=== PATIENT | male | born 1970 | race Caucasian/White ===

== ENCOUNTER 2016-04-06 01:45 | Emergency (ER) | payer OTHER ==
[~2016-04-06] VITALS: Ht 177.8 cm; Wt 81.8 kg
[2016-04-06 01:52] VITALS: Ht 177.8 cm; Wt 81.8 kg
[2016-04-06] MEDS ORDERED: ALBUTEROL 0.5% (NEB) 2.5 MG/0.5 ML AMP HHN STA (02:00)
[2016-04-06] MEDS ORDERED: IPRATROPIUM (NEB) 0.5 MG/2.5 ML AMP HHN ONE (02:00)
[2016-04-06] MEDS ORDERED: predniSONE 20 MG TAB PO ONE (02:30)
[2016-04-06] MEDS ORDERED: ALBU18HF INHALATION (03:46)
[2016-04-06] MEDS ORDERED: PRED20TA PO (03:46)
--- NOTE | 2016-04-06 03:51 | ERD ---
ER Documentation Chief Complaint Date/Time DATE: 04/06/16 TIME: 03:48 Chief Complaint BIBA DUE TO ASTHMA ATTACK HPI This 46 year male presents emergency room with shortness of breath is been increasing for the last 2 days. States he has a history of asthma and his last asthma exacerbation was less than a year ago. He does not have frequent asthma. Does not currently have asthma medication at home. Denies fever and chills. He does not think that he has any infection. Was given 5 mg albuterol treatment in the ambulance. ROS All systems reviewed and are negative except as per history of present illness. Medications Home Meds Active Scripts Prednisone* (Prednisone*) 20 Mg Tab, 40 MG PO DAILY, #4 TAB Prov:AARON WILEYSHUA 04/06/16 Albuterol Sulfate* (Ventolin HFA*) 18 Gm Hfa.aer.ad, 2 PUFF INHALATION Q4H, #1 INHALER Prov:INEZAARONNANCY 04/06/16 PMhx/Soc History of Surgery: Yes (INGUINAL HERNIA REPAIR) Anesthesia Reaction: No Hx Neurological Disorder: No Hx Respiratory Disorders: Yes (ASTHMA) Hx Cardiac Disorders: No Hx Psychiatric Problems: No Hx Miscellaneous Medical Probl: No Hx Alcohol Use: Yes Hx Substance Use: No Hx Tobacco Use: Yes Smoking Status: Former smoker Physical Exam Vitals Vital Signs Date Time Temp Pulse Resp B/P Pulse Ox O2 Delivery O2 Flow Rate FiO2 04/06/16 02:08 108 24 94 Nasal Cannula 2.0 04/06/16 01:52 98.2 121 19 117/81 95 Physical Exam Const: [] Mild distress Head: Atraumatic Eyes: Normal Conjunctiva ENT: Normal External Ears, Nose and Mouth. Neck: Full range of motion..~ No meningismus. Resp: Tachypnea, bilateral expiratory wheezes, mild accessory muscle use Cardio: Regular tachycardia, no murmurs Ext: No cyanosis, or edema Neur: Awake and alert oriented 3, no focal deficits Results 24 hrs Current Medications Medications (Trade) Dose Ordered Sig/Tiara Route PRN Reason Start Time Stop Time Status Last Admin Dose Admin Albuterol (Proventil 0.5% (Neb)) 10 mg ONCE STAT HHN 04/06/16 02:00 04/06/16 02:01 DC 04/06/16 02:08 Ipratropium [place] (Atrovent 0.02% (Neb)) 1 mg ONCE ONCE HHN 04/06/16 02:00 04/06/16 02:01 DC 04/06/16 02:08 Prednisone (Prednisone) 60 mg ONCE ONCE PO 04/06/16 02:30 04/06/16 02:31 DC 04/06/16 02:25 Procedures/MDM Moderate asthma exacerbation. Patient treated with 10 mg of albuterol nebulizers for a total of 15 mg, also given 1 mg of Atrovent. He was given 60 mg prednisone Emergency room. No signs of infection. Resolution of wheezing in ER. Patient states that he feels better. Discharging with primary care follow-up , albuterol inhaler and 4 more days of prednisone Departure Diagnosis: Primary Impression: Asthma with acute exacerbation Condition: Stable Patient Instructions: Asthma, Acute (Adult) Referrals: [facility] YOU HAVE RECEIVED A MEDICAL SCREENING EXAM AND THE RESULTS INDICATE THAT YOU DO NOT HAVE A CONDITION THAT REQUIRES URGENT TREATMENT IN THE EMERGENCY DEPARTMENT. FURTHER EVALUATION AND TREATMENT OF YOUR CONDITION CAN WAIT UNTIL YOU ARE SEEN IN YOUR DOCTORS OFFICE WITHIN THE NEXT 1-2 DAYS. IT IS YOUR RESPONSIBILITY TO MAKE AN APPOINTMENT FOR FOLOW-UP CARE. IF YOU HAVE A PRIMARY DOCTOR --you should call your primary doctor and schedule an appointment IF YOU DO NOT HAVE A PRIMARY DOCTOR YOU CAN CALL OUR PHYSICIAN REFERRAL HOTLINE AT IF YOU CAN NOT AFFORD TO SEE A PHYSICIAN YOU CAN CHOSE FROM THE FOLLOWING [facility] [address] [facility]. [facility] [address] [facility] [facility] [address] [facility]. [facility] [address] [facility]. [facility] [address] [facility]. [facility]. [address] Additional Instructions: Call your primary care doctor TOMORROW for an appointment during the next 2-3 days.See the doctor sooner or return here if your condition worsens before your appointment time. NANCY WILEY DO Apr 06, 2016 03:51
[2016-04-06 03:54] VITALS: BP 122/86; PULSE 104; RESP 20; TEMP 98
== END 2016-04-06 04:00 | disposition home or self-care (01) ==
LOC: E/R 01:45
DX: J45.901 Unspecified asthma with (acute) exacerbation (principal); Z87.891 Personal history of nicotine dependence
CPT/HCPCS: 94644; J7512; Z7502; Z7610

== ENCOUNTER 2017-08-06 01:51 | Inpatient (IN) | END 2017-08-07 14:45 | disposition home or self-care (01) | DRG 355 ==

== ENCOUNTER 2018-02-09 11:05 | Emergency (ER) | payer OTHER ==
[~2018-02-09] VITALS: Ht 175.3 cm; Wt 97.0 kg
[~2018-02-09 11:05] MED LIST: ALBU18HF INHALATION; DOCU-144 PO; HYDR-4011 PO
[2018-02-09 11:11] VITALS: BP 158/97; PULSE 118; RESP 18; Ht 175.3 cm; Wt 97.0 kg
--- NOTE | 2018-02-09 11:41 | ERD ---
ER Documentation Chief Complaint Chief Complaint bilat leg swelling and pain x 2 weeks HPI 47-year-old male, with history of anxiety, presents to the emergency department complaining of left lower extremity swelling, erythema and pain for approximately 1 week. The patient was seen 4 days ago at [facility] and was diagnosed with cellulitis and cephalexin was prescribed. Patient refers modest improvement of the symptoms. He denies fevers, no chills, no cough, no shortness of breath. ROS All systems reviewed and are negative except as per history of present illness. Medications Home Meds Active Scripts Sulfamethoxazole/Trimethoprim* (Bactrim Ds* Tablet) 1 Each Tablet, 1 TAB PO DAILY, #7 TAB Prov:RAQUEL IBARRA MD 02/09/18 Ibuprofen* (Motrin*) 600 Mg Tab, 600 MG PO Q8, #15 TAB Prov:RAQUEL IBARRA MD 02/09/18 Docusate Sodium* (Colace*) 100 Mg Capsule, 100 MG PO BID PRN for CONSTIPATION, #60 CAP Prov:PAWEL HERRMANN 08/07/17 Hydrocodone/Acetaminophen ([place] 5-325 Tablet) 1 Each Tablet, 1 EACH PO Q4 PRN for PAIN, #25 TAB Prov:PAWEL HERRMANN 08/07/17 Albuterol Sulfate* (Ventolin HFA*) 18 Gm Hfa.aer.ad, 2 PUFF INHALATION Q4H, #1 INHALER Prov:NANCY WILEY DO 04/06/16 Allergies Allergies: Coded Allergies: No Known Allergy (Unverified , 08/05/17) PMhx/Soc History of Surgery: Yes (INGUINAL HERNIA REPAIR) Anesthesia Reaction: No Hx Neurological Disorder: No Hx Respiratory Disorders: Yes (ASTHMA) Hx Cardiac Disorders: No Hx Psychiatric Problems: No Hx Miscellaneous Medical Probl: Yes (umbilical hernia) Hx Alcohol Use: Yes Hx Substance Use: No (quit using speed 1 yr ago) Hx Tobacco Use: Yes FmHx Family History: diabetes; No coronary disease Physical Exam Vitals Vital Signs Date Temp Pulse Resp B/P (MAP) Pulse Ox O2 O2 Flow FiO2 Time Delivery Rate 02/09/18 98.3 118 18 158/97 98 11:11 (117) Physical Exam Const: No acute distress Head: Atraumatic Eyes: Normal Conjunctiva ENT: Normal External Ears, Nose and Mouth. Neck: Full range of motion. No meningismus. Resp: Clear to auscultation bilaterally Cardio: Regular rate and rhythm, no murmurs Abd: Soft, non tender, non distended. Normal bowel sounds Skin: No petechiae or rashes Back: No midline or flank tenderness Ext: Left lower extremity: Ankle erythema, edema warmth and tenderness to palpation. Full range of motion. No evidence of abscess formation. Adequate distal pulses. Capillary refill less than 3 seconds. Neur: Awake and alert Psych: Normal Mood and Affect Results 24 hrs [place] [address] Radiology Main Line: [phone] DIAGNOSTIC IMAGING REPORT Patient: LAURA RIVERA : 1970 Age: 47 Sex: M MR #: [id number] DOS: 02/09/18 1138 Ordering MD: RAQUEL IBARRA MD Location: FTE Room/Bed: PROCEDURE: US Lower extremity Venous. CLINICAL INDICATION: Left leg pain TECHNIQUE: Multiple sonographic images of the left lower extremity deep venous system was obtained utilizing grayscale, color-flow, compressive sonography and doppler imaging with augmentation. The images were reviewed on a PACS worksta tion. COMPARISON: None. FINDINGS: There is normal compressibility and flow within the left common femoral, deep femoral, superficial femoral, posterior tibial, peroneal and popliteal veins. IMPRESSION: No sonographic evidence for deep venous thrombosis. RPTAT: AA .Ariel Ford MD, Date Time Electronically viewed and signed by .Ariel Ford MD, on 02/09/2018 12:49 .J/ CC: RAQUEL IBARRA MD [id number] Procedures/MDM Acute left pain: no red flags. Differential diagnosis include but not limited to: Musculoskeletal injury, arthritis, fracture, cellulitis, DVT; low suspicion for acute limb ischemia, septic arthritis, necrotizing fasciitis, compartment syndrome. Neurovascular exam grossly intact. no clinical findings suggestive of acute infectious process, no acute deformity, no edema, no rashes. Pertinent Data: Doppler ultrasound: No evidence of DVT. Physical examination and clinical presentation consistent most likely with cellulitis. During the ED course the patient remained hemodynamically stable, no new complaints. Results and clinical impression discussed with the patient who agrees with manag ement. The patient is stable to be treated outpatient and will be discharged home with recommendations for ice, rest and NSAIDs 3 times daily for 5 days and close monitoring. The patient was instructed to follow up with the primary care provider in the ne xt 48h. If symptoms persist, worsen or new symptoms develop, then patient should return to the ED immediately. Instructions explained and given to patient with acknowledgment and demonstrated understanding. Disclaimer: Inadvertent spelling and grammatical errors are likely due to EHR/dictation software use and do not reflect on the overall quality of patient care. Also, please note that the electronic time recorded on this note does not necessarily reflect the actual time of the patient encounter. Departure Diagnosis: Primary Impression: Cellulitis of left leg without foot Condition: Stable Additional Instructions: Thank you very much for allowing us to participate in your care. Your health and safety is our top priority at [facility]. Call your primary care doctor TOMORROW for an appointment during the next 2-4 days and bring all the information and medications prescribed. Have prescriptions filled and follow precisely the directions on the label. If the symptoms get worse and your provider is unavailable, return to the Emergency Department immediately. RAQUEL IBARRA MD Feb 09, 2018 11:41
[2018-02-09] MEDS ORDERED: IBUP-1542 PO (12:14)
[2018-02-09] MEDS ORDERED: SULF1TAB31 PO (12:14)
== END 2018-02-09 12:22 | disposition home or self-care (01) ==
LOC: FTE 11:05
DX: L03.116 Cellulitis of left lower limb (principal); J45.909 Unspecified asthma, uncomplicated; Z87.891 Personal history of nicotine dependence
CPT/HCPCS: 93971; Z7502

== ENCOUNTER 2018-02-25 03:16 | Emergency (ER) | payer OTHER ==
[~2018-02-25] VITALS: Ht 177.8 cm; Wt 91.7 kg
[~2018-02-25 03:16] MED LIST changes: +CLIN300C10 PO; +IBUP-1542 PO; +IBUP800T48 PO; +SULF1TAB31 PO
[2018-02-25 03:17] VITALS: Ht 177.8 cm; Wt 91.7 kg
[2018-02-25] MEDS ORDERED: BELLADONNA/PHENOBARBITAL TAB PO STA (04:09)
[2018-02-25] MEDS ORDERED: LIDOCAINE/MYLANTA 40 ML BTL PO STA (04:09)
[2018-02-25] MEDS ORDERED: FAMOTIDINE 20 MG INJ IV STA (04:09)
[2018-02-25] MEDS ORDERED: SOD CHLORIDE 0.9% 1,000 ML IV STA (04:09)
[2018-02-25] MEDS ORDERED: ONDANSETRON (ODT) 4 MG TAB ODT STA (04:16)
[2018-02-25] MEDS ORDERED: CEPHALEXIN 500 MG CAP PO ONE (04:30)
[2018-02-25] MEDS ORDERED: HYDROCODONE/APAP (10/325) TAB PO ONE (04:30)
[2018-02-25] MEDS ORDERED: LIDOCAINE 1%/EPI (MDV) 50 ML INJ INJ ONE (04:30)
[2018-02-25] MEDS ORDERED: TRIMETHOPRIM/SULFAMETHOX (DS) TAB PO ONE (04:30)
[2018-02-25] MEDS ORDERED: IBUP800T48 PO (04:36)
[2018-02-25] MEDS ORDERED: SULF1TAB31 PO (04:36)
[2018-02-25] MEDS ORDERED: CEPH-443 PO (04:36)
--- NOTE | 2018-02-25 04:42 | ERD ---
ER Documentation Chief Complaint Chief Complaint RIGHT LEG SWELLING; ON ATBs CLEOCIN HPI 47-year-old male who presents with an abscess to the right upper thigh. The patient was started on clindamycin several days ago for this without significant improvement. The patient has developed an abscess. Pain is moderate throbbing and worse to touch. Surrounding erythema warmth and tenderness to the medial aspect of the leg without lymphangitic spread. ROS All systems reviewed and are negative except as per history of present illness. Medications Home Meds Active Scripts Ibuprofen* (Motrin*) 800 Mg Tab, 800 MG PO Q6H PRN for PAIN AND OR ELEVATED TEMP, #30 TAB Prov:CLAUDIA PEREZ MD 02/25/18 Cephalexin* (Keflex*) 500 Mg Capsule, 500 MG PO QID for 7 Days, CAP Prov:CLAUDIA PEREZ MD 02/25/18 Sulfamethoxazole/Trimethoprim* (Bactrim Ds* Tablet) 1 Each Tablet, 1 TAB PO BID, #14 TAB Prov:CLAUDIA PEREZ MD 02/25/18 Ibuprofen* (Motrin*) 800 Mg Tab, 800 MG PO Q6H PRN for PAIN AND OR ELEVATED TEMP, #30 TAB Prov:WILLIAM PATHAK F 02/23/18 Clindamycin Hcl* (Clindamycin Hcl*) 300 Mg Capsule, 300 MG PO TID for 10 Days, CAP Prov:WILLIAM PATHAK F 02/23/18 Sulfamethoxazole/Trimethoprim* (Bactrim Ds* Tablet) 1 Each Tablet, 1 TAB PO DAILY, #7 TAB Prov:RAQUEL IBARRA MD 02/09/18 Ibuprofen* (Motrin*) 600 Mg Tab, 600 MG PO Q8, #15 TAB Prov:RAQUEL IBARRA MD 02/09/18 Docusate Sodium* (Colace*) 100 Mg Capsule, 100 MG PO BID PRN for CONSTIPATION, #60 CAP Prov:PAWEL HERRMANN 08/07/17 Hydrocodone/Acetaminophen ([place] 5-325 Tablet) 1 Each Tablet, 1 EACH PO Q4 PRN for PAIN, #25 TAB Prov:PAWEL HERRMANN 08/07/17 Albuterol Sulfate* (Ventolin HFA*) 18 Gm Hfa.aer.ad, 2 PUFF INHALATION Q4H, #1 INHALER Prov:NANCY WILEY DO 04/06/16 Allergies Allergies: Coded Allergies: No Known Allergy (Unverified , 08/05/17) PMhx/Soc History of Surgery: Yes Anesthesia Reaction: No Hx Neurological Disorder: No Hx Respiratory Disorders: Yes (ASTHMA) Hx Cardiac Disorders: No Hx Psychiatric Problems: No Hx Miscellaneous Medical Probl: No Hx Alcohol Use: No Hx Substance Use: No Hx Tobacco Use: No Smoking Status: Never smoker FmHx Family History: No diabetes Physical Exam Vitals Vital Signs Date Temp Pulse Resp B/P (MAP) Pulse Ox O2 O2 Flow FiO2 Time Delivery Rate 02/25/18 98.6 114 19 144/89 97 03:17 (107) Physical Exam General: Well developed, well nourished, no acute distress Head: Normocephalic, atraumatic. Eyes: EOM intact ENT: Moist mucous membranes Neck: Full ROM Respiratory: No respiratory distress Cardiovascular: Well perfused distally Abdominal: Nondistended : Deferred MSK: No edema, no unilateral swelling, 5/5 strength Neurologic: Alert and oriented, moving all extremities, normal speech, steady gait Skin: the patient has a 1 cm abscess to the superior aspect of the right anterior thigh with associated erythema warmth and tenderness, Spreading to the medial aspect by approximately 4-5 cm. No lymphangitic spread. Psych: Normal mood Results 24 hrs Current Medications Medications Dose Sig/Tiara Start Time Status Last (Trade) Ordered Route PRN Stop Time Admin Dose Reason Admin Sodium 1,000 ml @ Q1H STAT 02/25/18 DC Chloride 1,000 mls/hr IV 04:09 02/25/18 04:13 Famotidine 20 mg ONCE STAT 02/25/18 DC (Pepcid Iv) IV 04:09 02/25/18 04:13 40 ml ONCE STAT 02/25/18 DC Miscellaneous PO 04:09 Medication 02/25/18 04:13 (Gi Cocktail (2)) Belladonna/ 2 tab ONCE STAT 02/25/18 DC Phenobarbital PO 04:09 () 02/25/18 04:13 Lidocaine/ 50 ml ONCE ONCE 02/25/18 DC Epinephrine INJ 04:30 (Xylocaine 02/25/18 04:31 1%/ Epi (Mdv)) Cephalexin 500 mg ONCE ONCE 02/25/18 DC 02/25/18 (Keflex) PO 04:30 04:23 02/25/18 04:31 1 tab ONCE ONCE 02/25/18 DC 02/25/18 Trimethoprim/ PO 04:30 04:22 02/25/18 04:31 Sulfamethoxaz ole (Bactrim (Ds)) 1 tab ONCE ONCE 02/25/18 DC 02/25/18 Acetaminophen PO 04:30 04:23 / 02/25/18 04:31 Hydrocodone Bitart (Hensel (10)) Ondansetron 4 mg ONCE STAT 02/25/18 DC 02/25/18 HCl (Zofran ODT 04:16 04:22 Odt) 02/25/18 04:18 Procedures/MDM PROCEDURES: Incision and Drainage Note: The patient was consented prior to procedure and understands the risks, benefits, alternatives. The patient states verbal consent. Location: Right anterior thigh Abscess size: 1 cm Anesthesia: 1% lidocaine with epinephrine 5 cc Packing-type: None required The area was prepped in a sterile fashion, a sterile field was prepared. A midline abscess incision was made with a scalpel in a linear fashion. Purulent material was expressed with blunt probing to break up loculations as well as direct pressure. Packing was placed as described above. The patient tolerated the procedure well and there were no complications. A clean dressing was applied. MEDICAL DECISION MAKING: Clinical exam consistent with uncomplicated abscess of the right thigh with associated cellulitis. The patient is only taking clindamycin. The patient would likely benefit from transition to Bactrim and Keflex to cover more MRSA. I do not believe this is consistent with treatment failure do not feel the patient warrants inpatient hospitalization. Incision and drainage of the abscess is likely to improve symptoms. ER COURSE: Patient had appropriate I&D. First dose of Bactrim and Keflex provided. Hensel provided. CONSULTATION: [None] DISPOSITION PLAN: The patient does not have an identifiable emergent medical condition that warrants inpatient hospitalization at this time. The patient is deemed safe for discharge with outpatient follow-up. We discussed follow up with the patient's primary care doctor within 24 to 48 hours as needed. We also discussed return to the emergency room for worsening symptoms or worsening condition. Outpatient referral: [None required] Discharge Medications: Bactrim and Keflex, Motrin Departure Diagnosis: Primary Impression: Abscess Additional Impression: Cellulitis of right leg Condition: Stable Patient Instructions: Abscess, Incision And Drainage Referrals: [facility] YOU HAVE RECEIVED A MEDICAL SCREENING EXAM AND THE RESULTS INDICATE THAT YOU DO NOT HAVE A CONDITION THAT REQUIRES URGENT TREATMENT IN THE EMERGENCY DEPARTMENT. FURTHER EVALUATION AND TREATMENT OF YOUR CONDITION CAN WAIT UNTIL YOU ARE SEEN IN YOUR DOCTORS OFFICE WITHIN THE NEXT 1-2 DAYS. IT IS YOUR RESPONSIBILITY TO MAKE AN APPOINTMENT FOR FOLOW-UP CARE. IF YOU HAVE A PRIMARY DOCTOR --you should call your primary doctor and schedule an appointment IF YOU DO NOT HAVE A PRIMARY DOCTOR YOU CAN CALL OUR PHYSICIAN REFERRAL HOTLINE AT IF YOU CAN NOT AFFORD TO SEE A PHYSICIAN YOU CAN CHOSE FROM THE FOLLOWING [facility] [address] [facility]. [facility] [address] [facility] [address] [facility] [address] [facility] [address] [facility] [facility] [address] [facility]. [facility] YOU HAVE RECEIVED A MEDICAL SCREENING EXAM AND THE RESULTS INDICATE THAT YOU DO NOT HAVE A CONDITION THAT REQUIRES URGENT TREATMENT IN THE EMERGENCY DEPARTMENT. FURTHER EVALUATION AND TREATMENT OF YOUR CONDITION CAN WAIT UNTIL YOU ARE SEEN IN YOUR DOCTORS OFFICE WITHIN THE NEXT 1-2 DAYS. IT IS YOUR RESPONSIBILITY TO MAKE AN APPOINTMENT FOR FOLOW-UP CARE. IF YOU HAVE A PRIMARY DOCTOR --you should call your primary doctor and schedule and appointment IF YOU DO NOT HAVE A PRIMARY DOCTOR YOU CAN CALL OUR PHYSICIAN REFERRAL HOTLINE AT . IF YOU CAN NOT AFFORD TO SEE A PHYSICIAN YOU CAN CHOSE FROM THE FOLLOWING [facility]: [facility] [address] [place] [address] [facility] [address] [place] [address] [facility] [address] [place] [address] Additional Instructions: Call your primary care doctor TOMORROW for an appointment during the next 1 WEEK.Tell the statistical secretary that you were referred from this facility.See the doctor sooner or return here if your condition worsens before your appointment time. CLAUDIA PEREZ MD Feb 25, 2018 04:42
[2018-02-25 04:50] VITALS: BP 133/77; PULSE 78; RESP 16
== END 2018-02-25 04:57 | disposition home or self-care (01) ==
LOC: E/R 03:16
DX: L02.415 Cutaneous abscess of right lower limb (principal); L03.115 Cellulitis of right lower limb; J45.909 Unspecified asthma, uncomplicated
CPT/HCPCS: 10060; J7030; Z7502; Z7610

== ENCOUNTER 2018-03-04 05:10 | Emergency (ER) | payer OTHER ==
[~2018-03-04] VITALS: Ht 175.3 cm; Wt 93.5 kg
[~2018-03-04 05:10] MED LIST changes: +CEPH-443 PO
[2018-03-04 05:16] VITALS: BP 139/89; RESP 18; Ht 175.3 cm; Wt 93.5 kg
[2018-03-04] MEDS ORDERED: MUPI22OI2 TOP (05:27)
--- NOTE | 2018-03-04 05:30 | ERD ---
ER Documentation Chief Complaint Chief Complaint R leg abscess, finished abx yesterday- not better HPI Patient is an anxious 47-year-old male who is here for a wound check for an abscess on his right upper anterior thigh. He just finished Bactrim and Keflex yesterday and states is still not completely better. He has no fever. Is been no more bleeding or drainage. Overall he states it has improved. ROS All systems reviewed and are negative except as per history of present illness. Medications Home Meds Active Scripts Mupirocin* (Bactroban*) 2% -22 Gram Oint...g., 1 APPLIC TOP BID for 7 Days, EA Prov:SHAVON VILLANUEVA PA-C 03/04/18 Ibuprofen* (Motrin*) 800 Mg Tab, 800 MG PO Q6H PRN for PAIN AND OR ELEVATED TEMP, #30 TAB Prov:CLAUDIA PEREZ MD 02/25/18 Cephalexin* (Keflex*) 500 Mg Capsule, 500 MG PO QID for 7 Days, CAP Prov:CLAUDIA PEREZ MD 02/25/18 Sulfamethoxazole/Trimethoprim* (Bactrim Ds* Tablet) 1 Each Tablet, 1 TAB PO BID, #14 TAB Prov:CLAUDIA PEREZ MD 02/25/18 Ibuprofen* (Motrin*) 800 Mg Tab, 800 MG PO Q6H PRN for PAIN AND OR ELEVATED TEMP, #30 TAB Prov:WILLIAM PATHAK 02/23/18 Clindamycin Hcl* (Clindamycin Hcl*) 300 Mg Capsule, 300 MG PO TID for 10 Days, CAP Prov:WILLIAM PATHAK F 02/23/18 Sulfamethoxazole/Trimethoprim* (Bactrim Ds* Tablet) 1 Each Tablet, 1 TAB PO DAILY, #7 TAB Prov:RAQUEL IBARRA MD 02/09/18 Ibuprofen* (Motrin*) 600 Mg Tab, 600 MG PO Q8, #15 TAB Prov:RAQUEL IBARRA MD 02/09/18 Docusate Sodium* (Colace*) 100 Mg Capsule, 100 MG PO BID PRN for CONSTIPATION, #60 CAP Prov:PAWEL HERRMANN 08/07/17 Hydrocodone/Acetaminophen ([place] 5-325 Tablet) 1 Each Tablet, 1 EACH PO Q4 PRN for PAIN, #25 TAB Prov:PAWEL HERRMANN 08/07/17 Albuterol Sulfate* (Ventolin HFA*) 18 Gm Hfa.aer.ad, 2 PUFF INHALATION Q4H, #1 INHALER Prov:NANCY WILEY DO 04/06/16 Allergies Allergies: Coded Allergies: No Known Allergy (Unverified , 08/05/17) PMhx/Soc History of Surgery: Yes Anesthesia Reaction: No Hx Neurological Disorder: No Hx Respiratory Disorders: Yes (ASTHMA) Hx Cardiac Disorders: No Hx Psychiatric Problems: No Hx Miscellaneous Medical Probl: No Hx Alcohol Use: No Hx Substance Use: No Hx Tobacco Use: No FmHx Family History: No diabetes Physical Exam Vitals Vital Signs Date Temp Pulse Resp B/P (MAP) Pulse Ox O2 O2 Flow FiO2 Time Delivery Rate 03/04/18 97.3 115 18 139/89 97 05:16 (106) Physical Exam Const: No acute distress Head: Atraumatic Eyes: Normal Conjunctiva ENT: Normal External Ears, Nose and Mouth. Neck: Full range of motion. No meningismus. Resp: Clear to auscultation bilaterally Cardio: Regular rate and rhythm, no murmurs Skin: Her right upper anterior thigh has an healing abscess approximately 2 cm in diameter, it is flat, no significant surrounding erythema, no active bleeding or drainage Procedures/MDM Patient is concerned his abscess is not healing appropriately however I reassured him it looks well and it is healing appropriate. He wants to take more antibiotics but he is already taking Bactrim Keflex and clindamycin and his abscess appears well so I do not believe any more oral antibiotics are warranted at this time. He was however given prescription for Bactroban ointment that he can apply. He can return in 2 days for another wound check if his symptoms get worse. Patient counseled regarding my diagnostic impression and care plan. Prior to discharge all questions answered. Pt agrees with treatment plan and understands strict return precautions. Pt is instructed to follow up with primary care provider within 24-48 hours. Precautionary instructions provided including instructions to return to the ER if not improving or for any worsening or changing symptoms or concerns. Departure Diagnosis: Primary Impression: Wound check, abscess Condition: Stable Patient Instructions: Wound Care Additional Instructions: Call your primary care doctor TOMORROW for an appointment during the next 1-2 days.See the doctor sooner or return here if your condition worsens before your appointment time. SHAVON VILLANUEVA PA-C Mar 04, 2018 05:30
[2018-03-04 05:50] VITALS: PULSE 103
== END 2018-03-04 05:51 | disposition home or self-care (01) ==
LOC: FTE 05:10
DX: Z48.01 Encounter for change or removal of surgical wound dressing (principal); J45.909 Unspecified asthma, uncomplicated
CPT/HCPCS: 99283

== ENCOUNTER 2018-05-21 03:41 | Emergency (ER) | payer OTHER ==
[~2018-05-21] VITALS: Ht 175.3 cm; Wt 86.4 kg
[~2018-05-21 03:41] MED LIST changes: +MUPI22OI2 TOP
[2018-05-21 03:47] VITALS: BP 123/62; Ht 175.3 cm; Wt 86.4 kg
[2018-05-21] MEDS ORDERED: METHYLPREDNISOLONE 125 MG INJ IV STA (04:19)
[2018-05-21] MEDS ORDERED: ALBUTEROL 0.083% (NEB) 2.5 MG/3 ML AMP NEB STA ×2 (04:19→04:25)
[2018-05-21] MEDS ORDERED: IPRATROPIUM (NEB) 0.5 MG/2.5 ML AMP NEB STA ×2 (04:19→04:25)
[2018-05-21] MEDS ORDERED: PRED20TA PO (05:44)
[2018-05-21] MEDS ORDERED: ALBU18HF INHALATION (05:48)
[2018-05-21 06:24] VITALS: PULSE 106; RESP 18
--- NOTE | 2018-05-23 18:20 | ERD ---
ER Documentation Chief Complaint Chief Complaint BIBRA7,SOB,hx ashtma,rec'd albuterol breathing tx on route HPI 48 year old male presents with complaint of asthma exacerbation. States that it started last Sunday night. Has history of asthma for which he takes albuterol. Last dose was several hours ago. States that he has had exacerbations in zander past and steroids usually resolve it. Denies chest pain, syncope, hemoptysis, dyspnea,respiratory distress, lightheadendess. ROS All systems reviewed and are negative except as per history of present illness. Medications Home Meds Active Scripts Albuterol Sulfate* (Ventolin HFA*) 18 Gm Hfa.aer.ad, 2 PUFF INHALATION Q4H, #1 INHALER Prov:SELENE MOORE 05/21/18 Prednisone* (Prednisone*) 20 Mg Tab, 60 MG PO DAILY for 4 Days, TAB Prov:SELENE MOORE 05/21/18 Mupirocin* (Bactroban*) 2% -22 Gram Oint...g., 1 APPLIC TOP BID for 7 Days, EA Prov:SHAVON VILLANUEVA PA-C 03/04/18 Ibuprofen* (Motrin*) 800 Mg Tab, 800 MG PO Q6H PRN for PAIN AND OR ELEVATED TEMP, #30 TAB Prov:CLAUDIA PEREZ MD 02/25/18 Cephalexin* (Keflex*) 500 Mg Capsule, 500 MG PO QID for 7 Days, CAP Prov:CLAUDIA PEREZ MD 02/25/18 Sulfamethoxazole/Trimethoprim* (Bactrim Ds* Tablet) 1 Each Tablet, 1 TAB PO BID, #14 TAB Prov:CLAUDIA PEREZ MD 02/25/18 Ibuprofen* (Motrin*) 800 Mg Tab, 800 MG PO Q6H PRN for PAIN AND OR ELEVATED TEMP, #30 TAB Prov:WILLIAM PATHAK 02/23/18 Clindamycin Hcl* (Clindamycin Hcl*) 300 Mg Capsule, 300 MG PO TID for 10 Days, CAP Prov:BEBEILAWILLIAM HAYWOOD F 02/23/18 Sulfamethoxazole/Trimethoprim* (Bactrim Ds* Tablet) 1 Each Tablet, 1 TAB PO DAILY, #7 TAB Prov:RAQUEL IBARRA MD 02/09/18 Ibuprofen* (Motrin*) 600 Mg Tab, 600 MG PO Q8, #15 TAB Prov:RAQUEL IBARRA MD 02/09/18 Docusate Sodium* (Colace*) 100 Mg Capsule, 100 MG PO BID PRN for CONSTIPATION, #60 CAP Prov:MONTEZPAWEL 08/07/17 Hydrocodone/Acetaminophen (Sperry 5-325 Tablet) 1 Each Tablet, 1 EACH PO Q4 PRN for PAIN, #25 TAB Prov:REGIDORPAWEL 08/07/17 Albuterol Sulfate* (Ventolin HFA*) 18 Gm Hfa.aer.ad, 2 PUFF INHALATION Q4H, #1 INHALER Prov:NANCY WILEY DO 04/06/16 Allergies Allergies: Coded Allergies: clonazepam (Verified Allergy, Unknown, 05/21/18) PMhx/Soc History of Surgery: Yes Anesthesia Reaction: No Hx Neurological Disorder: No Hx Respiratory Disorders: Yes (ASTHMA) Hx Cardiac Disorders: No Hx Psychiatric Problems: No Hx Miscellaneous Medical Probl: No Hx Alcohol Use: No Hx Substance Use: No Hx Tobacco Use: No Smoking Status: Never smoker FmHx Family History: No diabetes, No coronary disease, No other Physical Exam Vitals Vital Signs Date Temp Pulse Resp B/P (MAP) Pulse Ox O2 O2 Flow FiO2 Time Delivery Rate 05/21/18 106 18 95 Room Air 06:24 05/21/18 102 94 Room Air 05:59 05/21/18 Nasal 2 04:59 Cannula 05/21/18 103 20 97 Nasal 4.0 04:33 Cannula 05/21/18 98.6 110 18 123/62 92 03:47 (82) Physical Exam Const: No acute distress Head: Atraumatic Eyes: Normal Conjunctiva ENT: Normal External Ears, Nose and Mouth. Neck: Full range of motion. No meningismus. Resp Wheezing heard in lung lacy bilaterally. No palor or cyanosis noted. Cardio: Regular rate and rhythm, no murmurs Abd: Soft, non tender, non distended. Normal bowel sounds Skin: No petechiae or rashes Back: No midline or flank tenderness Ext: No cyanosis, or edema Neur: Awake and alert Psych: Normal Mood and Affect Results 24 hrs Current Medications Medications Dose Sig/Tiara Start Time Status Last (Trade) Ordered Route PRN Stop Time Admin Dose Reason Admin Albuterol 5 mg ONCE STAT 05/21/18 DC 05/21/18 (Proventil NEB 04:19 04:33 0.083% (Neb)) 05/21/18 04:22 Ipratropium 1.5 mg ONCE STAT 05/21/18 DC Point NEB 04:19 (Atrovent 05/21/18 04:27 0.02% (Neb)) 125 mg ONCE STAT 05/21/18 DC 05/21/18 Methylprednis IV 04:19 05:12 olone Sodium 05/21/18 04:22 Succinate (Solu-Medrol) Albuterol 5 mg ONCE STAT 05/21/18 DC 05/21/18 (Proventil NEB 04:25 04:33 0.083% (Neb)) 05/21/18 04:27 Ipratropium 0.5 mg ONCE STAT 05/21/18 DC 05/21/18 Point NEB 04:25 04:33 (Atrovent 05/21/18 04:27 0.02% (Neb)) Procedures/MDM ER Course: Patient given treatment with nebulized albuterol, ipatropium, and steroids. MDM: I have low suspicion for status asthmaticus due to patient improvement after breathing treatment. I have low suspicion for CHF, pneumonia, aspirated fo reign body, pneumothorax, PE, respiratory distress, or other mergent condition based on exam and patient history. In addition, patient does not meet Wells score criteria for D-Dimer. Presentation consistent with asthma exacerbation for which patient was given breathing treatment and steroids in ER. After breathing treatment was finished, patients vitals and exam were WNL and patient stated they felt much better. Patient was discharged with rx for alubuterol and a short course of oral steroids. Patient was also advised that asthma has to be managed on outpatient basis by primary care provider. Patient discharged with strict ER precautions. Patient advised to follow up with PMD. All questions answered at discharge. Departure Diagnosis: Primary Impression: Asthma with acute exacerbation Asthma severity: unspecified severity Asthma persistence: unspecified Qualified Codes: J45.901 - Unspecified asthma with (acute) exacerbation Condition: Stable Patient Instructions: Asthma Medications, Asthma, Acute (Adult) Referrals: [facility] YOU HAVE RECEIVED A MEDICAL SCREENING EXAM AND THE RESULTS INDICATE THAT YOU DO NOT HAVE A CONDITION THAT REQUIRES URGENT TREATMENT IN THE EMERGENCY DEPARTMENT. FURTHER EVALUATION AND TREATMENT OF YOUR CONDITION CAN WAIT UNTIL YOU ARE SEEN IN YOUR DOCTORS OFFICE WITHIN THE NEXT 1-2 DAYS. IT IS YOUR RESPONSIBILITY TO MAKE AN APPOINTMENT FOR FOLOW-UP CARE. IF YOU HAVE A PRIMARY DOCTOR --you should call your primary doctor and schedule an appointment IF YOU DO NOT HAVE A PRIMARY DOCTOR YOU CAN CALL OUR PHYSICIAN REFERRAL HOTLINE AT IF YOU CAN NOT AFFORD TO SEE A PHYSICIAN YOU CAN CHOSE FROM THE FOLLOWING [facility] [address] [facility] [address] [facility] [facility] [address] [facility] [address] [facility] [address] [facility]. [facility]. [address] Additional Instructions: FOLLOW UP WITH YOUR PRIMARY CARE PHYSICIAN TOMORROW.Return to this facility if you are not improving as expected. SELENE MOORE May 23, 2018 18:20
== END 2018-05-21 06:27 | disposition home or self-care (01) ==
LOC: FTE 03:41
DX: J45.901 Unspecified asthma with (acute) exacerbation (principal)
CPT/HCPCS: 94644; 96374; J2930; Z7502; Z7610